=== PATIENT | female | born 1985 | race Caucasian/White ===

== ENCOUNTER 2024-04-22 06:14 | Emergency (ER) | payer OTHER ==
[~2024-04-22] VITALS: Ht 162.6 cm; Wt 61.3 kg
[2024-04-22 06:25] VITALS: O2SAT 98
[2024-04-22 06:38] VITALS: BP 118/66; PULSE 60; RESP 18; TEMP 98.6; O2SAT 100
[2024-04-22 07:24] LABS: DIFFERENTIAL COMMENT 0; EOSINOPHILS % 1.4 % (0.0-5.0); HEMOGLOBIN. 11.7 g/dL (12.0-16.0); LYMPHOCYTES % 29.4 % (20.0-50.0); MEAN CORPUSCULAR HEMOGLOBIN 25.4 pg (28.0-32.0); MEAN CORPUSCULAR HGB CONC 32.6 g/dL (31.0-37.0); MEAN CORPUSCULAR VOLUME 77.9 fL (81.0-99.0); MEAN PLATELET VOLUME 7.7 fl (7.4-10.4); MONOCYTES % 12.7 % (2.0-8.0); NEUTROPHILS % 55.5 % (40.0-76.0); PLATELET 360 x1000/uL (130-400); RED BLOOD CELL COUNT 4.62 mill/uL (4.2-5.4); RED CELL DISTRIBUTION WIDTH 19.9 % (11.6-14.6); WHITE BLOOD COUNT 5.9 x1000/uL (4.5-11.0)
[2024-04-22 07:35] LABS: CHLORIDE 108 mEq/L (98-107); POTASSIUM 4.1 mEq/L (3.5-5.1); SODIUM 138 mEq/L (136-145)
[2024-04-22 07:36] LABS: CALCIUM 9.4 mg/dL (8.7-10.4); CARBON DIOXIDE 27 mEq/L (21-32); HCG SCREEN NEGATIVE
[2024-04-22 07:41] LABS: CREATININE 0.7 mg/dL (0.6-1.0); GLUCOSE 97 mg/dL (70-105); UREA NITROGEN BLOOD 8 mg/dL (9-23)
[2024-04-22] MEDS: ACETAMINOPHEN 325MG TABLET PO STA (07:41)
[2024-04-22] MEDS ORDERED: SUMA25TA9 MT (08:25)
== END 2024-04-22 08:53 | disposition home or self-care (01) ==
LOC: ER 06:14
DX: R51.9 Headache, unspecified (principal); D64.9 Anemia, unspecified
CPT/HCPCS: 36415; 80048; 81025; 84703; 85025; 99284